=== PATIENT | female | born 1970 | race American Indian/Alaskan Native ===

== ENCOUNTER 2017-03-16 12:55 | Outpatient (CLI) | payer OTHER | END 2017-03-16 19:28 | disposition home or self-care (01) | LOC: MAMMO 12:55 | DX: Z12.31 Encounter for screening mammogram for malignant neoplasm of breast (principal) | CPT/HCPCS: G0202-TC ==

== ENCOUNTER 2017-07-21 10:03 | Outpatient (CLI) | payer OTHER | END 2017-07-21 19:09 | disposition home or self-care (01) | LOC: US 10:03 | DX: R92.8 Other abnormal and inconclusive findings on diagnostic imaging of breast (principal) ==

== ENCOUNTER 2017-07-22 10:30 | Outpatient (CLI) | payer OTHER | END 2017-07-22 19:34 | disposition home or self-care (01) | LOC: US 10:30 | DX: R92.8 Other abnormal and inconclusive findings on diagnostic imaging of breast (principal) ==

== ENCOUNTER 2018-01-01 08:23 | Outpatient (CLI) | payer OTHER | END 2018-01-01 22:43 | disposition home or self-care (01) | LOC: MAMMO 08:23 | DX: R92.8 Other abnormal and inconclusive findings on diagnostic imaging of breast (principal) ==

== ENCOUNTER 2018-11-12 13:55 | Outpatient (CLI) | payer OTHER | END 2018-11-12 19:56 | disposition home or self-care (01) | LOC: MAMMO 13:55 | DX: Z12.31 Encounter for screening mammogram for malignant neoplasm of breast (principal) ==

== ENCOUNTER 2020-02-11 11:04 | Emergency (ER) | payer OTHER ==
[~2020-02-11] VITALS: Ht 165.1 cm; Wt 99.8 kg
[2020-02-11 13:10] VITALS: BP 131/82; TEMP 99.1
== END 2020-02-11 13:17 | disposition home or self-care (01) ==
LOC: ED 11:04
PROC: 2W39X1Z Immobilization of Left Upper Extremity using Splint (ICD-10-PCS; principal; 2020-02-11)
DX: S52.045A Nondisplaced fracture of coronoid process of left ulna, initial encounter for closed fracture (principal); Y93.B2 Activity, push-ups, pull-ups, sit-ups; Y92.89 Other specified places as the place of occurrence of the external cause
CPT/HCPCS: 36415; 96374; 96376; 99284; J2270

== ENCOUNTER 2023-10-08 11:06 | Outpatient (CLI) | payer OTHER | END 2023-10-08 19:30 | disposition home or self-care (01) | LOC: US 11:06 | PROVIDERS: ATTEND Nurse Practitioner Family | DX: R31.9 Hematuria, unspecified (principal) ==